=== PATIENT | female | born 1980 | race Hispanic/Latino ===

== ENCOUNTER 2021-11-19 23:12 | Inpatient (IN) | payer MEDICAID ==
[~2021-11-19] VITALS: Ht 162.6 cm; Wt 109.5 kg
[~2021-11-19 23:12] MED LIST: AMOX-429 PO; LISI40TA9 PO
[2021-11-19] MEDS ORDERED: ONDANSETRON 4MG INJ ONE (23:23)
[2021-11-19] MEDS ORDERED: ACETAMINOPHEN 650 MG SUPPOSITORY RC ONE (23:30)
[2021-11-19] MEDS ORDERED: ONDANSETRON 4MG INJ IVP ONE (23:30)
[2021-11-19 23:36] LABS: BASOPHILS % (AUTO) 0.3 % (0.0-5.0); LYMPHOCYTES % (AUTO) 3.2 % (21.0-51.0); MEAN CORPUSCULAR HEMOGLOBIN 24.8 pg (27.0-33.0); MEAN CORPUSCULAR HGB CONC 31.8 g/dL (32.0-36.0); MEAN CORPUSCULAR VOLUME 77.8 fL (79-99); MONOCYTES % (AUTO) 4.4 % (3.0-13.0); NEUTROPHILS % (AUTO) 90.8 % (40.0-77.0); PLATELET COUNT (AUTO) 451 K/uL (130-400); RED BLOOD CELL COUNT(AUTO) 4.24 MIL/uL (4.00-5.50); RED CELL DISTRIBUTION WIDTH 14.8 % (11.0-15.5)
[2021-11-19 23:39] LABS: WHITE BLOOD COUNT (AUTO) 31.4 K/uL (4.8-10.8)
[2021-11-20] LABS: APPEARANCE,URINE Clear (CLEAR); BILIRUBIN,URINE Negative (NEGATIVE); COLOR,URINE Yellow (YELLOW); GLUCOSE, URINE (UA) Negative (NEGATIVE); KETONES,URINE Negative (NEGATIVE); LEUKOCYTE ESTERASE ,URINE Negative (NEGATIVE); NITRATE,URINE Negative (NEGATIVE); OCCULT BLOOD,URINE Negative (NEGATIVE); PROTEIN,URINE POS 1+ mg/dL (NEGATIVE); UROBILINOGEN,URINE 0.2 mg/dL (0.2-1.0)
[2021-11-20] MEDS ORDERED: ZOSYN 3.375GM +NS 50ML IV SCH
[2021-11-20] MEDS ORDERED: 0.9%NACL 1000ML 1,503 ML IV ONE
[2021-11-20 00:02] LABS: ALANINE AMINOTRANSFERASE 16 U/L (12-78); ALBUMIN 3.4 g/dL (3.5-5.0); ALCOHOL, BLOOD < 3 mg/dL (0-10); ASPARTATE AMINOTRANSFERASE 13 U/L (10-37); BILIRUBIN,TOTAL 0.6 mg/dL (0.2-1.0); CARBON DIOXIDE 24 mmol/L (21-32); CHLORIDE 98 mmol/L (101-111); CREATINE KINASE, TOTAL 63 U/L (21-232); CREATININE 1.6 mg/dL (0.5-1.5); GLOMERULAR FILTR. RATE CALC 38 mL/min (>60); GLUCOSE,RANDOM 149 mg/dL (70-105); LIPASE 54 U/L (114-286); SODIUM SERUM 135 mmol/L (136-145); TOTAL PROTEIN, SERUM 8.1 g/dL (6.0-8.3); UREA NITROGEN, BLOOD 17 mg/dL (7-18)
[2021-11-20 00:04] LABS: POTASSIUM 2.8 mmol/L (3.5-5.1)
[2021-11-20 00:25] LABS: HCG,QUAL RESULT NEGATIVE (NEGATIVE)
[2021-11-20 01:01] LABS: AMPHET/METH SCREEN,URINE NEGATIVE (NEGATIVE); BARBITURATE SCREEN, URINE NEGATIVE (NEGATIVE); BENZODIAZEPINES SCREEN,URINE NEGATIVE (NEGATIVE); CANNABINOID SCREEN,URINE NEGATIVE (NEGATIVE); COCAINE SCREEN,URINE NEGATIVE (NEGATIVE); OPIATE SCREEN,URINE NEGATIVE (NEGATIVE); PHENCYCLIDINE SCREEN,URINE NEGATIVE (NEGATIVE)
[2021-11-20 01:06] LABS: BAND NEUTROPHILS % (MANUAL) 5 % (0-2); LYMPHOCYTES % (MANUAL) 5 % (22-44); MAN.DIFF COMMENT-IMPRESSION MANUAL DIFFERENTIAL; MONOCYTES % (MANUAL) 2 % (2-9); PLATELET MORPHOLOGY COMMENT ADEQUATE; SEGMENTED NEUTROPHILS % 88 % (40-70)
[2021-11-20] MEDS ORDERED: POTASSIUM CHLORIDE 20MEQ/100ML 100 ML IV ONE (01:20)
[2021-11-20] MEDS ORDERED: KETOROLAC 30MG VIAL (30MG/ML) ONE (01:41)
[2021-11-20] MEDS ORDERED: ACETAMINOPHEN 325 MG/10.15ML UDCUP ONE (01:41)
[2021-11-20] MEDS ORDERED: MAG/ALUM/SIMETH 30 ML UDCUP PO PRN (02:00)
[2021-11-20] MEDS ORDERED: LACTULOSE 20 GM/30 ML UDCUP PO PRN (02:00)
[2021-11-20] MEDS ORDERED: ACETAMINOPHEN 325 MG TAB PO PRN (02:00)
[2021-11-20] MEDS ORDERED: ONDANSETRON 4MG INJ IV PRN (02:00)
[2021-11-20] MEDS ORDERED: 0.9%NACL 1000ML 1,000 ML IV SCH (02:00)
[2021-11-20 03:10] VITALS: BP 107/59
[2021-11-20] MEDS ORDERED: CARV25TA PO (04:02)
[2021-11-20] MEDS ORDERED: AMLO-258 PO (04:02)
[2021-11-20] MEDS ORDERED: HYDR25TA PO (04:02)
[2021-11-20] MEDS ORDERED: AEC81 PO (04:02)
[2021-11-20] MEDS ORDERED: ATOR40TA71 PO (04:02)
[2021-11-20] MEDS ORDERED: HYDR-4154 PO (04:02)
[2021-11-20] MEDS ORDERED: LOSA100T58 PO (04:02)
[2021-11-20] MEDS: ZOSYN 3.375GM+NS 50ML 50 ML IV SCH ×3 (05:00→21:19)
[2021-11-20 06:00] LABS: POTASSIUM 3.2 mmol/L (3.5-5.1)
[2021-11-20] MEDS ORDERED: POTASSIUM CHLORIDE 10% ELIXIR 20 MEQ/15 ML UDCUP ONE (06:24)
[2021-11-20 06:35] LABS: BASOPHILS % (AUTO) 0.2 % (0.0-5.0); EOSINOPHILS % (AUTO) 0.3 % (0.0-8.0); HEMATOCRIT 28.8 % (36-48); LYMPHOCYTES % (AUTO) 3.5 % (21.0-51.0); MEAN CORPUSCULAR HEMOGLOBIN 25.1 pg (27.0-33.0); MEAN CORPUSCULAR HGB CONC 32.3 g/dL (32.0-36.0); MEAN CORPUSCULAR VOLUME 77.6 fL (79-99); MONOCYTES % (AUTO) 3.4 % (3.0-13.0); NEUTROPHILS % (AUTO) 91.4 % (40.0-77.0); PLATELET COUNT (AUTO) 393 K/uL (130-400); RED BLOOD CELL COUNT(AUTO) 3.71 MIL/uL (4.00-5.50); RED CELL DISTRIBUTION WIDTH 14.8 % (11.0-15.5)
[2021-11-20 06:48] LABS: ALBUMIN 2.8 g/dL (3.5-5.0); BILIRUBIN,TOTAL 0.6 mg/dL (0.2-1.0); CREATININE 1.6 mg/dL (0.5-1.5); MAGNESIUM 1.4 mg/dL (1.80-2.40); TOTAL PROTEIN, SERUM 7.2 g/dL (6.0-8.3); WHITE BLOOD COUNT (AUTO) 32.7 K/uL (4.8-10.8)
[2021-11-20] MEDS ORDERED: POTASSIUM CHLORIDE 10% ELIXIR 20 MEQ/15 ML UDCUP PO SCH (07:37)
[2021-11-20 08:00] VITALS: BP 114/68
[2021-11-20] MEDS ORDERED: MAGNESIUM 2GM PREMIX 50ML 50 ML IV SCH ×2 (08:30→11:00)
[2021-11-20] MEDS ORDERED: ENOXAPARIN SODIUM 30 MG/0.3 ML SQ SCH (09:00)
[2021-11-20] MEDS: FAMOTIDINE 20MG VIAL IV SCH ×2 (09:13→21:21)
[2021-11-20] MEDS ORDERED: HYDRALAZINE 20MG/ML VIAL IV PRN (11:30)
[2021-11-20 12:00] VITALS: BP 112/62
[2021-11-20] MEDS ORDERED: DIATR MEGLU/DIATRIZOATE SODIUM 30 ML BOTTLE ONE (12:23)
[2021-11-20] MEDS ORDERED: SODIUM CHLORIDE 3% FOR INHALATION 4 ML/AMP VIAL.NEB IH ONE (14:54)
[2021-11-20 15:00] VITALS: BP 108/63
[2021-11-20 16:00] VITALS: BP 118/68
[2021-11-20] MEDS: CARVEDILOL 3.125 MG TABLET PO SCH ×2 (16:42→21:21)
[2021-11-20] MEDS: ASPIRIN 81MG CHEW TAB PO SCH (16:42)
[2021-11-20] MEDS: DOXYCYCLINE HYCLATE 100 MG TABLET PO SCH ×2 (16:43→21:21)
[2021-11-20] MEDS: HEPARIN 5,000 UNIT VIAL SQ SCH (16:44)
[2021-11-20 21:03] VITALS: BP 118/42
[2021-11-20] MEDS: ACETAMINOPHEN 325 MG TAB PO PRN (21:22)
[2021-11-21 00:08] VITALS: BP 110/62
[2021-11-21] MEDS: ZOSYN 3.375GM+NS 50ML 50 ML IV SCH ×3 (03:44→20:46)
[2021-11-21] MEDS: HEPARIN 5,000 UNIT VIAL SQ SCH ×2 (03:45→16:55)
[2021-11-21] MEDS: ACETAMINOPHEN 325 MG TAB PO PRN (04:04)
[2021-11-21 04:38] LABS: MAGNESIUM 2.6 mg/dL (1.80-2.40); POTASSIUM 3.2 mmol/L (3.5-5.1)
[2021-11-21 04:57] VITALS: BP 106/50
[2021-11-21 05:07] LABS: BASOPHILS % (AUTO) 0.2 % (0.0-5.0); HEMATOCRIT 26.2 % (36-48); LYMPHOCYTES % (AUTO) 10.9 % (21.0-51.0); MEAN CORPUSCULAR HEMOGLOBIN 24.9 pg (27.0-33.0); MEAN CORPUSCULAR HGB CONC 31.7 g/dL (32.0-36.0); MEAN CORPUSCULAR VOLUME 78.7 fL (79-99); MONOCYTES % (AUTO) 3.3 % (3.0-13.0); PLATELET COUNT (AUTO) 339 K/uL (130-400); RED BLOOD CELL COUNT(AUTO) 3.33 MIL/uL (4.00-5.50); RED CELL DISTRIBUTION WIDTH 15.4 % (11.0-15.5); WHITE BLOOD COUNT (AUTO) 21.5 K/uL (4.8-10.8)
[2021-11-21 05:14] LABS: CREATININE 1.4 mg/dL (0.5-1.5)
[2021-11-21 05:17] LABS: ALBUMIN 2.6 g/dL (3.5-5.0); BILIRUBIN,TOTAL 0.4 mg/dL (0.2-1.0)
[2021-11-21 07:30] VITALS: BP 115/66
[2021-11-21] MEDS: ATORVASTATIN 40 MG TABLET PO SCH ×2 (09:30→20:47)
[2021-11-21] MEDS: FAMOTIDINE 20MG VIAL IV SCH ×2 (09:30→20:46)
[2021-11-21] MEDS: DOXYCYCLINE HYCLATE 100 MG TABLET PO SCH ×2 (09:30→20:47)
[2021-11-21] MEDS: ASPIRIN 81MG CHEW TAB PO SCH (09:30)
[2021-11-21] MEDS: CARVEDILOL 3.125 MG TABLET PO SCH ×2 (09:30→20:47)
[2021-11-21 12:35] VITALS: BP 128/74
[2021-11-21 15:25] VITALS: BP 120/75
[2021-11-21 20:00] VITALS: BP 125/63
[2021-11-22] VITALS: BP 122/69
[2021-11-22] MEDS: HEPARIN 5,000 UNIT VIAL SQ SCH ×2 (03:17→16:47)
[2021-11-22 04:00] VITALS: BP 139/84
[2021-11-22] MEDS: ZOSYN 3.375GM+NS 50ML 50 ML IV SCH ×3 (04:14→21:42)
[2021-11-22 05:01] LABS: BASOPHILS % (AUTO) 0.3 % (0.0-5.0); EOSINOPHILS % (AUTO) 0.2 % (0.0-8.0); HEMATOCRIT 27.5 % (36-48); LYMPHOCYTES % (AUTO) 18.8 % (21.0-51.0); MEAN CORPUSCULAR HEMOGLOBIN 24.9 pg (27.0-33.0); MEAN CORPUSCULAR VOLUME 77.9 fL (79-99); MONOCYTES % (AUTO) 4.6 % (3.0-13.0); NEUTROPHILS % (AUTO) 75.1 % (40.0-77.0); PLATELET COUNT (AUTO) 364 K/uL (130-400); RED BLOOD CELL COUNT(AUTO) 3.53 MIL/uL (4.00-5.50); RED CELL DISTRIBUTION WIDTH 15.1 % (11.0-15.5); WHITE BLOOD COUNT (AUTO) 12.5 K/uL (4.8-10.8)
[2021-11-22 05:20] LABS: ALBUMIN 2.6 g/dL (3.5-5.0); BILIRUBIN,TOTAL 0.6 mg/dL (0.2-1.0); CREATININE 1.6 mg/dL (0.5-1.5); CRP QUANTITATIVE 105.5 mg/L (0.00-9.0); POTASSIUM 3.1 mmol/L (3.5-5.1); TOTAL PROTEIN, SERUM 6.8 g/dL (6.0-8.3)
[2021-11-22] MEDS: CARVEDILOL 3.125 MG TABLET PO SCH (05:47)
[2021-11-22 07:45] VITALS: BP 189/80
[2021-11-22] MEDS: ASPIRIN 81MG CHEW TAB PO SCH (09:00)
[2021-11-22] MEDS: DOXYCYCLINE HYCLATE 100 MG TABLET PO SCH ×2 (09:00→21:41)
[2021-11-22 11:05] VITALS: BP 143/84
[2021-11-22] MEDS: FAMOTIDINE 20MG VIAL IV SCH ×2 (11:18→21:38)
[2021-11-22] MEDS: LOSARTAN 50 MG TABLET PO SCH ×2 (11:45→21:40)
[2021-11-22] MEDS: AMLODIPINE 5 MG TAB PO SCH ×2 (11:45→21:41)
[2021-11-22] MEDS: CARVEDILOL 12.5 MG TABLET PO SCH ×2 (12:00→21:40)
[2021-11-22] MEDS: HYDRALAZINE 25MG TABLET PO SCH ×2 (13:00→21:41)
[2021-11-22 15:35] VITALS: BP 127/85
[2021-11-22 20:00] VITALS: BP 128/75
[2021-11-22] MEDS ORDERED: KCL 20 MEQ ERTAB PO ONE (21:24)
[2021-11-22] MEDS ORDERED: POTASSIUM CHLORIDE 20MEQ/100ML 100 ML IV PRN ×2 (21:30)
[2021-11-22] MEDS ORDERED: POTASSIUM CHLORIDE 10% ELIXIR 20 MEQ/15 ML UDCUP PO PRN (21:30)
[2021-11-22] MEDS ORDERED: LIDOCAINE HCL-MPF 1% 2ML VIAL IV PRN ×2 (21:30)
[2021-11-22] MEDS: ATORVASTATIN 40 MG TABLET PO SCH (21:41)
[2021-11-22] MEDS: KCL 20 MEQ ERTAB PO PRN (23:31)
[2021-11-23] VITALS: BP_SYST 112
[2021-11-23] MEDS: KCL 20 MEQ ERTAB PO PRN ×2 (01:14→07:28)
[2021-11-23 04:00] VITALS: BP 107/68
[2021-11-23] MEDS: HEPARIN 5,000 UNIT VIAL SQ SCH ×2 (04:45→16:39)
[2021-11-23] MEDS: ZOSYN 3.375GM+NS 50ML 50 ML IV SCH ×3 (05:04→20:23)
[2021-11-23 05:33] LABS: BASOPHILS % (AUTO) 0.3 % (0.0-5.0); EOSINOPHILS % (AUTO) 0.6 % (0.0-8.0); HEMATOCRIT 29.7 % (36-48); MEAN CORPUSCULAR HEMOGLOBIN 24.9 pg (27.0-33.0); MEAN CORPUSCULAR HGB CONC 31.6 g/dL (32.0-36.0); MEAN CORPUSCULAR VOLUME 78.6 fL (79-99); MONOCYTES % (AUTO) 5.1 % (3.0-13.0); NEUTROPHILS % (AUTO) 70.4 % (40.0-77.0); PLATELET COUNT (AUTO) 368 K/uL (130-400); RED BLOOD CELL COUNT(AUTO) 3.78 MIL/uL (4.00-5.50); RED CELL DISTRIBUTION WIDTH 14.9 % (11.0-15.5); WHITE BLOOD COUNT (AUTO) 12.7 K/uL (4.8-10.8)
[2021-11-23 05:53] LABS: ALBUMIN 2.6 g/dL (3.5-5.0); BILIRUBIN,TOTAL 0.4 mg/dL (0.2-1.0); CREATININE 1.4 mg/dL (0.5-1.5); POTASSIUM 3.6 mmol/L (3.5-5.1); TOTAL PROTEIN, SERUM 6.9 g/dL (6.0-8.3)
[2021-11-23 08:04] VITALS: BP 130/64
[2021-11-23] MEDS: HYDRALAZINE 25MG TABLET PO SCH ×2 (09:22→20:23)
[2021-11-23] MEDS: FAMOTIDINE 20MG VIAL IV SCH (09:22)
[2021-11-23] MEDS: LOSARTAN 50 MG TABLET PO SCH (09:23)
[2021-11-23] MEDS: DOXYCYCLINE HYCLATE 100 MG TABLET PO SCH ×2 (09:23→20:22)
[2021-11-23] MEDS: AMLODIPINE 5 MG TAB PO SCH (09:23)
[2021-11-23] MEDS: ASPIRIN 81MG CHEW TAB PO SCH (09:23)
[2021-11-23] MEDS: CARVEDILOL 12.5 MG TABLET PO SCH ×2 (09:24→20:22)
[2021-11-23 11:46] VITALS: BP 109/55
[2021-11-23 16:00] VITALS: BP 146/84
[2021-11-23] MEDS: FAMOTIDINE 20MG TAB PO SCH (17:47)
[2021-11-23] MEDS ORDERED: AMLODIPINE 5 MG TAB ONE (19:15)
[2021-11-23] MEDS ORDERED: LOSARTAN 50 MG TABLET ONE (19:15)
[2021-11-23] MEDS ORDERED: HYDRALAZINE 25MG TABLET ONE (19:17)
[2021-11-23 20:00] VITALS: BP 141/80
[2021-11-23] MEDS: ATORVASTATIN 40 MG TABLET PO SCH (20:23)
[2021-11-24] VITALS: BP 119/78
[2021-11-24 04:00] VITALS: BP 119/78
[2021-11-24] MEDS: ZOSYN 3.375GM+NS 50ML 50 ML IV SCH ×2 (04:14→12:53)
[2021-11-24 05:16] LABS: BASOPHILS % (AUTO) 0.4 % (0.0-5.0); EOSINOPHILS % (AUTO) 1.5 % (0.0-8.0); HEMATOCRIT 29.8 % (36-48); LYMPHOCYTES % (AUTO) 19.5 % (21.0-51.0); MEAN CORPUSCULAR HEMOGLOBIN 24.2 pg (27.0-33.0); MEAN CORPUSCULAR HGB CONC 31.2 g/dL (32.0-36.0); MEAN CORPUSCULAR VOLUME 77.6 fL (79-99); MONOCYTES % (AUTO) 4.7 % (3.0-13.0); NEUTROPHILS % (AUTO) 72.9 % (40.0-77.0); PLATELET COUNT (AUTO) 408 K/uL (130-400); RED BLOOD CELL COUNT(AUTO) 3.84 MIL/uL (4.00-5.50); RED CELL DISTRIBUTION WIDTH 14.9 % (11.0-15.5); WHITE BLOOD COUNT (AUTO) 13.5 K/uL (4.8-10.8)
[2021-11-24 05:56] LABS: ALBUMIN 2.7 g/dL (3.5-5.0); BILIRUBIN,TOTAL 0.4 mg/dL (0.2-1.0); CREATININE 1.6 mg/dL (0.5-1.5); CRP QUANTITATIVE 34.5 mg/L (0.00-9.0); POTASSIUM 3.4 mmol/L (3.5-5.1); TOTAL PROTEIN, SERUM 7.1 g/dL (6.0-8.3)
[2021-11-24] MEDS: KCL 20 MEQ ERTAB PO PRN ×2 (06:13→09:16)
[2021-11-24 06:23] LABS: RETICULOCYTE % (AUTO) 1.79 % (0.42-2.23)
[2021-11-24 07:45] LABS: % IRON SATURATION 10.5 % (22-44)
[2021-11-24 08:13] VITALS: BP 111/56
[2021-11-24] MEDS ORDERED: AMLODIPINE 5 MG TAB PO SCH (09:00)
[2021-11-24] MEDS ORDERED: LOSARTAN 100 MG TABLET PO SCH (09:00)
[2021-11-24] MEDS ORDERED: ENOXAPARIN SODIUM 40 MG/0.4 ML SYRINGE SQ SCH (09:00)
[2021-11-24] MEDS: HYDRALAZINE 25MG TABLET PO SCH (09:12)
[2021-11-24] MEDS: FAMOTIDINE 20MG TAB PO SCH (09:12)
[2021-11-24] MEDS: ASPIRIN 81MG CHEW TAB PO SCH (09:12)
[2021-11-24] MEDS: CARVEDILOL 12.5 MG TABLET PO SCH (09:13)
[2021-11-24] MEDS: DOXYCYCLINE HYCLATE 100 MG TABLET PO SCH (09:13)
[2021-11-24 11:58] VITALS: BP 113/77
[2021-11-24 16:11] VITALS: BP 114/75
[2021-11-24] MEDS ORDERED: HYDR25 PO (17:55)
[2021-11-24] MEDS ORDERED: CARV12.580 PO (17:55)
[2021-11-24] MEDS ORDERED: AMLO5TAB4 PO (17:55)
[2021-11-24] MEDS ORDERED: AMOX-429 PO (17:55)
== END 2021-11-24 18:15 | disposition home or self-care (01) | DRG 720 ==
LOC: EDH 23:12 → EDHIP 23:13 → 3BH 11-20 02:58
PROVIDERS: ADMIT Internal Medicine; ATTEND Internal Medicine
DX: A41.9 Sepsis, unspecified organism (principal); G93.41 Metabolic encephalopathy; E43 Unspecified severe protein-calorie malnutrition; N17.9 Acute kidney failure, unspecified; E86.1 Hypovolemia; N39.0 Urinary tract infection, site not specified; E87.6 Hypokalemia; I10 Essential (primary) hypertension; E66.01 Morbid (severe) obesity due to excess calories; R65.20 Severe sepsis without septic shock; Z20.822 Contact with and (suspected) exposure to COVID-19; I69.351 Hemiplegia and hemiparesis following cerebral infarction affecting right dominant side; E87.1 Hypo-osmolality and hyponatremia; Z68.41 Body mass index [BMI] 40.0-44.9, adult; D75.838 Other thrombocytosis; D50.9 Iron deficiency anemia, unspecified; R53.81 Other malaise; N94.89 Other specified conditions associated with female genital organs and menstrual cycle; R32 Unspecified urinary incontinence; Z79.82 Long term (current) use of aspirin; Z91.041 Radiographic dye allergy status; Z82.3 Family history of stroke; Z82.5 Family history of asthma and other chronic lower respiratory diseases; Z83.3 Family history of diabetes mellitus; Z82.0 Family history of epilepsy and other diseases of the nervous system; Z82.49 Family history of ischemic heart disease and other diseases of the circulatory system
CPT/HCPCS: 36415; 70450; 71045; 74176; 76856; 80053; 80305; 81003; 81025; 82270; 82550; 82607; 82746; 83540; 83550; 83605; 83690; 83735; 83880; 84145; 84484; 84703; 85025; 85045; 85651; 86140; 86304; 86738; 87040; 87088; 87449; 87486; 87581; 87633; 87635; 87797; 87798; 87804; 93005; 94640; 99291; C9803; G0378; J1644; J1650; J1885; J2405; J2543; J3475; J3480; J3490; Q9963

== ENCOUNTER 2023-12-03 19:13 | Emergency (ER) | payer MEDICARE, MEDICAID ==
[~2023-12-03] VITALS: Ht 165.1 cm; Wt 112.0 kg
[~2023-12-03 19:13] MED LIST changes: +AEC81 PO; +AMLO5TAB4 PO; +ATOR40TA71 PO; +CARV12.580 PO; +HYDR25 PO; -LISI40TA9 PO; +LOSA100T59 PO
[2023-12-03 19:17] VITALS: BP 166/102; PULSE 90; RESP 20
== END 2023-12-03 19:55 | disposition home or self-care (01) ==
LOC: EDH 19:13
DX: T43.591A Poisoning by other antipsychotics and neuroleptics, accidental (unintentional), initial encounter (principal); Y92.89 Other specified places as the place of occurrence of the external cause